=== PATIENT | male | born 1980 ===

== ENCOUNTER 2018-02-03 17:11 | Emergency (ER) | payer OTHER ==
[2018-02-03 17:47] VITALS: RESP 16; TEMP 98.3
--- NOTE | 2018-02-03 18:58 | ED PDOC ---
HPI: Back Time Seen by Provider: 02/03/18 18:17 Chief Complaint (Nursing): Back Pain Chief Complaint (Provider): back pain History Per: Patient History/Exam Limitations: no limitations Onset/Duration Of Symptoms: Days (x2 weeks) Current Symptoms Are (Timing): Still Present Quality Of Discomfort: "Pain" Previous Symptoms: Back Pain Additional Complaint(s): Jose Abdul is a 37 year old male, with no significant past medical history, who presents to the emergency department complaining of a left sided lower back pain onset for x2 weeks. Patient states he suddenly woke up with the pain one morning and pain has been worsening ever since. Patient also reports for the last x3 days the pain began radiating to the left lower extremity. 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 He is taking Flexeril and Motrin at home, last dose at noon today. He denies any fever, chills, abdominal pain, chest pain, nausea, vomit, diarrhea, shortness of breath, cough, saddle anesthesia or incontinence. No further medical complaints. PMD: None provided. Past Medical History Reviewed: Historical Data, Nursing Documentation, Vital Signs Vital Signs: Last Vital Signs Temp 98.3 F 02/03/18 17:47 Pulse 66 02/03/18 17:47 Resp 16 02/03/18 17:47 BP 144/84 02/03/18 17:47 Pulse Ox 100 02/03/18 17:47 - Medical History PMH: Back Problems - Surgical History Other surgeries: left elbow procedure - Family History Family History: States: Unknown Family Hx - Social History Current smoker - smoking cessation education provided: No Alcohol: None Drugs: Denies - Home Medications Home Medications: Ambulatory Orders Medication Instructions Recorded Cyclobenzaprine [Cyclobenzaprine 10 mg PO TID PRN #20 tab 10/24/16 HCl] Ibuprofen [Motrin Tab] 800 mg PO Q8 PRN #20 tab 10/24/16 Methocarbamol [Robaxin-750] 750 mg PO Q8 PRN #12 tablet 02/03/18 Naproxen 500 mg PO BID PRN #20 tab 02/03/18 Cyclobenzaprine [Cyclobenzaprine 10 mg PO TID #15 tab 02/05/18 HCl] Methylprednisolone [Medrol Dose 4 mg PO ASDIR #21 mg 02/05/18 Pack (21 tabs)] - Allergies Allergies/Adverse Reactions: Allergies Allergy/AdvReac Type Severity Reaction Status Date / Time No Known Allergies Allergy Verified 02/03/18 17:45 Review of Systems ROS Statement: Except As Marked, All Systems Reviewed And Found Negative Constitutional: Negative for: Fever, Chills Cardiovascular: Negative for: Chest Pain Respiratory: Negative for: Cough, Shortness of Breath Gastrointestinal: Negative for: Nausea, Vomiting, Abdominal Pain, Diarrhea Genitourinary Male: Negative for: Incontinence, Other (saddle anesthesia) Musculoskeletal: Positive for: Back Pain (lower back, radiates to left lower extremity), Leg Pain (left) Physical Exam - Reviewed Nursing Documentation Reviewed: Yes Vital Signs Reviewed: Yes - Physical Exam Comments: GENERAL APPEARANCE: Patient is awake, alert, oriented x 3, in no acute distress. Ambulatory in ED with steady gait SKIN: Warm, dry; (-) cyanosis. EYES: (-) conjunctival pallor. ENMT: Mucous membranes moist. NECK: Supple, FROM (-) tenderness, (-) stiffness, (-) lymphadenopathy. CHEST AND RESPIRATORY: (-) rales, (-) rhonchi, (-) wheezes; breath sounds equal bilaterally. Speaking in full sentences. HEART AND CARDIOVASCULAR: (-) irregularity; (-) murmur, (-) gallop. ABDOMEN AND GI: Soft; (-) tenderness (-) guarding (-) distention; (-) palpable mass. BACK: (+) left paralumbar and sciatic notch tenderness, (+) mild spasm, (-) direct bony tenderness, (-) deformity. Straight leg raise (-) bilaterally. EXTREMITIES: (-) deformity. Distal pulses good bilaterally. NEURO AND PSYCH: Mental status as above. Intact sensation bilaterally; normal strength in extension of the knees, plantar and dorsiflexion of the toes. Speech clear (-) facial asymmetry (-) aphasia - ECG O2 Sat by Pulse Oximetry: 100 (RA) Pulse Ox Interpretation: Normal Medical Decision Making Medical Decision Making: Time: 18:17 Initial Impression: Acute on chronic back pain, probable sciatica Initial Plan: --Toradol 30 mg IM --Ultram 50 mg PO --Valium 5 mg PO (Patient not driving home) --Reevaluation 1944 On re-evaluation, patient reports improvement of symptoms. On exam, patient remains AAOx3, in no acute distress. On exam, neck is supple, lungs CTA, cardiac RRR, abdomen is soft and non-tender, neuro exam shows no focal findings. VSS, stable for discharge. Diagnostic results d/w the patient in great detail. Dx of acute on chronic back pain, consider sciatica d/w the patient. Based on history, exam and diagnostic results plan will be for discharge and outpatient follow up. Advised to follow up with clinic/ortho in 1-2 days without fail. Advised to take medication as prescribed. Return to the emergency room at any time for any new or worsening symptoms. Patient states he fully agrees with and understands discharge instructions. States that he agrees with the plan and disposition. Verbalized and repeated discharge instructions and plan. I have given the patient opportunity to ask any additional questions. -- Scribe Attestation: Documented by Ralf Norton, acting as a scribe for Cathi العلي PA-C Provider Scribe Attestation: All medical record entries made by the Scribe were at my direction and personally dictated by me. I have reviewed the chart and agree that the record accurately reflects my personal performance of the history, physical exam, medical decision making, and the department course for this patient. I have also personally directed, reviewed, and agree with the discharge instructions and disposition. Disposition - Clinical Impression Clinical Impression: Low back pain, Sciatica - Patient ED Disposition Is Patient to be Admitted: No Counseled Patient/Family Regarding: Diagnosis, Need For Followup, Rx Given - Disposition Referrals: [facility] [Outside] Susanna Alonso MD [Staff Provider] - Disposition: Routine/Home Disposition Time: 19:47 Condition: IMPROVED Additional Instructions: FOLLOW UP WITH CLINIC/ORTHO IN 1-2 DAYS WITHOUT FAIL. RETURN TO ED WITH ANY NEW OR WORSENING SYMPTOMS. Prescriptions: Methocarbamol [Robaxin-750] 750 mg PO Q8 PRN #12 tablet PRN Reason: Muscle Spasm Naproxen 500 mg PO BID PRN #20 tab PRN Reason: Pain, Moderate (4-7) Instructions: Low Back Pain (DC), Sciatica (DC), Muscle Spasms (DC), Muscle and Bone Pain (DC), Sciatica Exercises Forms: [facility] (Brazilian) Print Language: SLOVENIAN - POA Present On Arrival: None
[2018-02-03 20:20] VITALS: BP 131/78; PULSE 73
[2018-02-06 23:31] VITALS: O2SAT 100
== END 2018-02-03 20:19 | disposition home or self-care (01) ==
LOC: H.ER 17:11
DX: M54.42 Lumbago with sciatica, left side (principal); G89.29 Other chronic pain
CPT/HCPCS: 96372; 99283; J1885

== ENCOUNTER 2018-02-05 11:02 | Emergency (ER) | payer OTHER ==
[2018-02-05 11:27] VITALS: BMI 28.1
--- NOTE | 2018-02-05 14:20 | ED PDOC ---
Lower Extremity Pain/Injury Chief Complaint (Provider): Left leg pain History Per: Patient History/Exam Limitations: no limitations Onset/Duration Of Symptoms: Days Current Symptoms Are (Timing): Constant Pain Scale Rating Of: 6 Additional History Per: Patient Additional Complaint(s): 37 year old male, with no significant past medical history, who presents to the emergency department complaining of a left sided lower back pain onset for x2 weeks, radiating to left lower extremity, and numbness sensation in his left foot. Patient was seen in ER for similar complains, and discharge on Naproxen, and methocarbamol. As per patient he has been taking his medications as directed , but pain gets better just temporally. 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 He denies any fever, chills, abdominal pain, chest pain, nausea, vomit, diarrhea, shortness of breath, cough, saddle anesthesia or incontinence. Also complaining of a pruritic rash in his left lower leg x 1 week, when he had contact with a plant, possible poison Yanci. PMD: none at this time. Has an appoint on 02/08/18 at [facility] for initial evaluation <Cathi Wisdom - Last Filed: 02/05/18 15:47> <Betsy Loving - Last Filed: 02/08/18 12:45> Time Seen by Provider: 02/05/18 11:48 Chief Complaint (Nursing): Lower Extremity Problem/Injury Supervising Attending Note - Supervising Attending Note The Documented history was done by the: Physician Vegetable Washing Machine Operator, Attending Physician The documented physical exam was done by the: Physician Vegetable Washing Machine Operator, Attending Physician The documented procedures were done by the: Physician Vegetable Washing Machine Operator, Attending Physician - Attestation: I have personally seen and examined this patient.: Yes I have fully participated in the care of the patient.: Yes I have reviewed all pertinent clinical information, including history, physical exam and plan: Yes <Betsy Loving - Last Filed: 02/08/18 12:45> Past Medical History Vital Signs: Last Vital Signs Temp 97.6 F 02/05/18 11:25 Pulse 81 02/05/18 11:25 Resp BP 126/90 02/05/18 11:25 Pulse Ox 100 02/05/18 11:25 - Medical History PMH: Back Problems - Family History Family History: States: Unknown Family Hx - Social History Current smoker - smoking cessation education provided: No Ex-Smoker (has not smoked in the last 12 months): No Alcohol: None Drugs: Denies <Cathi Wisdom - Last Filed: 02/05/18 15:47> Reviewed: Historical Data, Nursing Documentation, Vital Signs Vital Signs: Last Vital Signs Temp 98.0 F 02/05/18 15:52 Pulse 77 02/05/18 15:52 Resp 17 02/05/18 15:52 BP 136/68 02/05/18 15:52 Pulse Ox 100 02/05/18 15:55 - Surgical History Surgical History: No Surg Hx <Betsy Loving - Last Filed: 02/08/18 12:45> - Home Medications Home Medications: Ambulatory Orders Medication Instructions Recorded Cyclobenzaprine [Cyclobenzaprine 10 mg PO TID PRN #20 tab 10/24/16 HCl] Ibuprofen [Motrin Tab] 800 mg PO Q8 PRN #20 tab 10/24/16 Methocarbamol [Robaxin-750] 750 mg PO Q8 PRN #12 tablet 02/03/18 Naproxen 500 mg PO BID PRN #20 tab 02/03/18 Cyclobenzaprine [Cyclobenzaprine 10 mg PO TID #15 tab 02/05/18 HCl] Methylprednisolone [Medrol Dose 4 mg PO ASDIR #21 mg 02/05/18 Pack (21 tabs)] - Allergies Allergies/Adverse Reactions: Allergies Allergy/AdvReac Type Severity Reaction Status Date / Time No Known Allergies Allergy Verified 02/08/18 12:00 Wells Criteria for PE - Wells Criteria for Pulmonary Embolism Clinical Signs and Symptoms of DVT: No P.E is #1 Diagnosis, or Equally Likely: No Heart Rate >100: No Immobilization at least 3 days;Surgery previous 4 weeks: No Previous, objectively diagnosed PE or DVT: No Hemoptysis: No Total Score: 0 <Cathi Wisdom - Last Filed: 02/05/18 15:47> Review of Systems ROS Statement: Except As Marked, All Systems Reviewed And Found Negative (as per HPI) <Cathi Wisdom - Last Filed: 02/05/18 15:47> ROS Statement: Except As Marked, All Systems Reviewed And Found Negative <Betsy Loving - Last Filed: 02/08/18 12:45> Physical Exam - Reviewed Nursing Documentation Reviewed: Yes Vital Signs Reviewed: Yes - Physical Exam Appears: Positive for: Non-toxic, No Acute Distress Skin: Positive for: Normal Color, Warm, Dry Cardiovascular/Chest: Positive for: Regular Rate, Rhythm. Negative for: Chest Non Tender, Edema, Bradycardia, Tachycardia Respiratory: Positive for: Normal Breath Sounds. Negative for: Decreased Breath Sounds, Accessory Muscle Use, Crackles, Rales, Rhonchi, Wheezing, Respiratory Distress Gastrointestinal/Abdominal: Positive for: Soft. Negative for: Tenderness, Distended, Guarding, Rebound Back: Positive for: Normal Inspection, Other (left paraspinal muscle tender to palpation). Negative for: L CVA Tenderness, R CVA Tenderness, Vertebral Tenderness Extremity: Positive for: Other (active ROM of LLE decreased because pain. ). Negative for: Pedal Edema, Calf Tenderness Neurologic/Psych: Positive for: Alert, Oriented <Cathi Wisdom - Last Filed: 02/05/18 15:47> - ECG O2 Sat by Pulse Oximetry: 100 <Cathi Wisdom - Last Filed: 02/05/18 15:47> Medical Decision Making Medical Decision Making: Left sided Sciatica -With radiculopathy -Toradol 15 mg IM once -Fexeril 10 mg PO Pruritic rash -most likely contact dermatitis -Medrol pack -Benadryl 25 mg PO once case discussed with Dr. Loving Re-evaluation patient feels better, pain improved significantly Stable for discharge home with outpatient f/u with a PCP. Patient has an appointment with a PMD at [facility] on 02/08/[address] Loving <Cathi Wisdom - Last Filed: 02/05/18 15:47> Disposition - Patient ED Disposition Is Patient to be Admitted: No Discussed With : Betsy Loving - Disposition Disposition: Routine/Home Disposition Time: 14:48 <Cathi Wisdom Last Filed: 02/05/18 15:47> Counseled Patient/Family Regarding: Studies Performed, Diagnosis, Need For Followup <Betsy Loving Last Filed: 02/08/18 12:45> - Clinical Impression Clinical Impression: Left sided sciatica, Pruritic rash - Disposition Referrals: [facility] [Outside] Condition: GOOD Additional Instructions: Follow up with your PCP and pain management within 1 week. Take your medications as instructed. Follow up with your MRI outpatient. Prescriptions: Cyclobenzaprine [Cyclobenzaprine HCl] 10 mg PO TID #15 tab Methylprednisolone [Medrol Dose Pack (21 tabs)] 4 mg PO ASDIR #21 mg Instructions: Sciatica, Skin Rash (DC)
[2018-02-05 14:37] VITALS: PULSE 77; RESP 17
[2018-02-05 14:42] VITALS: O2SAT 100
[2018-02-05 15:55] VITALS: BP 136/68; TEMP 98
== END 2018-02-05 15:40 | disposition home or self-care (01) ==
LOC: H.ER 11:02
DX: M54.32 Sciatica, left side (principal); L29.9 Pruritus, unspecified
CPT/HCPCS: 96372; 99284; J1885

== ENCOUNTER 2018-04-07 11:33 | Day surgery (SDC) | payer SELFPAY ==
[2018-04-06 13:49] VITALS: BMI 27.4
[2018-04-07 12:08] VITALS: RESP 18
[2018-04-07] MEDS ORDERED: Lidocaine 2% MPF (5 ml) Inj ONE (12:23)
[2018-04-07] MEDS ORDERED: methylPREDNISolone Depo 80 mg/ml Inj ONE (12:24)
[2018-04-07] MEDS ORDERED: Iohexol 300 10 ML ONE (12:24)
[2018-04-07] MEDS ORDERED: Lactated Ringer's 1,000 ML IV ONE (12:25)
[2018-04-07] MEDS ORDERED: Bupivacaine HCl 0.25% PF (30 ml) Inj ONE (12:25)
[2018-04-07] MEDS ORDERED: Propofol 10 mg/ml Inj (20 ML) ONE (12:28)
[2018-04-07] MEDS ORDERED: Lidocaine 2% MPF (5 ml) Inj INJ ONE (12:30)
[2018-04-07] MEDS ORDERED: methylPREDNISolone Depo 80 mg/ml Inj IM ONE (12:30)
[2018-04-07] MEDS ORDERED: Iohexol 300 10 ML IJ ONE (12:30)
[2018-04-07] MEDS ORDERED: Bupivacaine 0.5% Inj(30mL) IJ ONE (12:30)
[2018-04-07] MEDS ORDERED: Lactated Ringer's 1,000 ML IV SCH (13:15)
[2018-04-07 14:40] VITALS: BP 112/71; PULSE 56; TEMP 98.4; O2SAT 99
--- NOTE | 2018-04-07 21:49 | OP ---
Copied To: Dash Zamora MD Attending MD: Dash Zamora MD PROCEDURE DATE: 04/07/2018 PREOPERATIVE DIAGNOSIS: Lumbar radiculopathy. POSTOPERATIVE DIAGNOSIS: Lumbar radiculopathy. PROCEDURE: Left L4-L5 transforaminal epidural steroid injection. ANESTHESIOLOGIST: Samuel Dennis MD. SURGEON: Dash Zamora MD. TYPE OF ANESTHESIA: Monitored anesthesia care. COMPLICATIONS: None. SPECIMEN: None. DESCRIPTION OF PROCEDURE: As follows: After we had discussion of the procedure with the patient including its risks, benefits, alternatives, outcome data, and possibility of no effect or increased pain, the patient consented to the procedure. He denied any recent infections, bleeding tendencies, or being on anticoagulants. Decision was then made to proceed to the OR. The patient was placed on the fluoroscopy table in a prone position with two pillows underneath his abdomen. The back was prepped and draped in the usual sterile fashion and a sterile technique was adhered to during the entire procedure. The L4 vertebral levels were first identified in the anteroposterior view. Angulation towards the left at approximately 20 degrees was used to maximize the visualization of the left L4 pedicle. The skin overlying the 6 o'clock position of the pedicle was then infiltrated with 1% lidocaine using 25-gauge needle. Subsequently, a 22-gauge 3.5-inch spinal needle was then incrementally advanced under fluoroscopic guidance until the tip of needle made into the intervertebral foramen. This was confirmed by injecting approximately 0.5 mL of Isovue contrast. After appropriate placement of the needle, approximately 3 mL of 0.25% Marcaine and Depo-Medrol mixture was injected. The needle was then removed, the patient's back was cleaned, and dry bandages were applied. The patient was then transferred to the recovery area in good condition without any signs of TRANSFER AND PUMPHOUSE OPERATOR toxicity or any neurological deficit. He will be following in our office in approximately two to four weeks. Dash Zamora MD
--- NOTE | 2018-04-09 17:03 | RAD ---
Date of service: 04/07/2018 PROCEDURE: Intraoperative fluoroscopy HISTORY: PAIN MANAGEMENT COMPARISON: Not available TECHNIQUE: Intraoperative fluoroscopy was provided for an interventional pain management procedure. Total time of fluoroscopy was 15.9 seconds. The cumulative dose was 3.02 mGy. FINDINGS: Two fluoroscopic spot films are submitted. IMPRESSION: Fluoroscopy provided.
== END 2018-04-07 14:43 | disposition home or self-care (01) ==
LOC: H.OPSURG 11:33
PROVIDERS: ATTEND Anesthesiology
DX: M54.16 Radiculopathy, lumbar region (principal)

== ENCOUNTER 2018-11-13 15:36 | Emergency (ER) | payer SELFPAY ==
[2018-11-13 15:37] VITALS: BMI 27.4
[2018-11-13 15:58] VITALS: BP 119/68; PULSE 78; RESP 18; TEMP 98.6; O2SAT 98
--- NOTE | 2018-11-13 16:22 | ED PDOC ---
Lower Extremity Pain/Injury Time Seen by Provider: 11/13/18 16:07 Chief Complaint (Nursing): Lower Extremity Problem/Injury Chief Complaint (Provider): Lower Extremity Problem/Injury History Per: Patient History/Exam Limitations: no limitations Onset/Duration Of Symptoms: Days (x1 month), Intermittent Episodes Current Symptoms Are (Timing): Still Present Additional Complaint(s): Patient is a 37 y/o male with a PMHx of back problems who presents to the ED for evaluation of intermittent episodes of left knee pain for the past month. Patient states he has been unable to sleep due to the pain. Patient states he has been taking Motrin for relief. Patient denies trauma and any further medical complaints. PCP: None Provided Past Medical History Reviewed: Historical Data, Nursing Documentation, Vital Signs Vital Signs: Last Vital Signs Temp 98.6 F 11/13/18 15:56 Pulse 78 11/13/18 15:56 Resp 18 11/13/18 15:56 BP 119/68 11/13/18 15:56 Pulse Ox 98 11/13/18 15:56 - Medical History PMH: Back Problems Denies: Chronic Kidney Disease - Surgical History Surgical History: No Surg Hx - Family History Family History: States: Unknown Family Hx - Home Medications Home Medications: Ambulatory Orders Medication Instructions Recorded Gabapentin [Neurontin] 1 tab PO BID 04/07/18 traMADol [Ultram] 50 mg PO Q8 PRN 04/07/18 Cyclobenzaprine [Flexeril] 10 mg PO TID #27 tab 11/13/18 Diclofenac Potassium 50 mg PO BID #20 tablet 11/13/18 - Allergies Allergies/Adverse Reactions: Allergies Allergy/AdvReac Type Severity Reaction Status Date / Time No Known Allergies Allergy Verified 04/07/18 12:17 Review of Systems ROS Statement: Except As Marked, All Systems Reviewed And Found Negative Musculoskeletal: Positive for: Other (left knee pain) Physical Exam - Reviewed Nursing Documentation Reviewed: Yes Vital Signs Reviewed: Yes - Physical Exam Appears: Positive for: Non-toxic, No Acute Distress Head Exam: Positive for: ATRAUMATIC, NORMAL INSPECTION, NORMOCEPHALIC Skin: Positive for: Normal Color, Warm, DRY Eye Exam: Positive for: EOMI, Normal appearance, PERRL Neck: Positive for: Normal, Painless ROM, Supple Cardiovascular/Chest: Positive for: Regular Rate, Rhythm. Negative for: Murmur Respiratory: Positive for: Normal Breath Sounds. Negative for: Respiratory Distress Gastrointestinal/Abdominal: Positive for: Normal Exam, Soft. Negative for: Tenderness Back: Positive for: Normal Inspection. Negative for: L CVA Tenderness, R CVA Tenderness, Vertebral Tenderness Extremity: Positive for: Normal ROM, Other (mild crepitus of left knee). Negative for: Tenderness, Pedal Edema, Deformity Neurological/Psych: Positive for: Alert, Oriented (x3) - ECG O2 Sat by Pulse Oximetry: 98 (RA) Pulse Ox Interpretation: Normal Medical Decision Making Medical Decision Making: Time: 161 Impression: Osteoarthritis of Left Leg Plan: Toradol and tylenol Knee 3 Views LT [Rad] Scribe Attestation: Documented by Nhan Blanca, acting as a scribe forNixon Ayala PA-C Provider Scribe Attestation: All medical record entries made by the Scribe were at my direction and personally dictated by me. I have reviewed the chart and agree that the record accurately reflects my personal performance of the history, physical exam, medical decision making, and the department course for this patient. I have also personally directed, reviewed, and agree with the discharge instructions and disposition. Disposition - Clinical Impression Clinical Impression: Knee pain, left, Arthralgia of knee, left - Patient ED Disposition Is Patient to be Admitted: No Doctor Will See Patient In The: Office Counseled Patient/Family Regarding: Studies Performed, Diagnosis, Need For Followup, Rx Given - Disposition Referrals: [facility] [place] [Outside] Disposition: Routine/Home Disposition Time: 17:34 Condition: STABLE Prescriptions: Cyclobenzaprine [Flexeril] 10 mg PO TID #27 tab Diclofenac Potassium 50 mg PO BID #20 tablet Instructions: Knee Pain (DC), Chronic Knee Pain (DC), Joint Pain, Knee Pain Forms: [employer] (Tunisian), [employer] (East Timorese) Print Language: SRI LANKAN
--- NOTE | 2018-11-14 12:58 | RAD ---
Date of service: 11/13/2018 PROCEDURE: Left Knee Radiographs. HISTORY: Pain. COMPARISON: None TECHNIQUE: 2 views obtained. FINDINGS: BONES: Normal. No fracture. JOINTS: Joint spaces preserved with no significant osteoarthritis JOINT EFFUSION: No significant joint effusion OTHER FINDINGS: None. IMPRESSION: No evidence of acute displaced fracture nor dislocation.
== END 2018-11-13 17:40 | disposition home or self-care (01) ==
LOC: H.ER 15:36
DX: M25.562 Pain in left knee (principal)
CPT/HCPCS: 73562; 96372; 99283; J1885